=== PATIENT | female | born 1955 | race Caucasian/White ===

== ENCOUNTER 2023-09-28 14:23 | Emergency (ER) | payer BC, MEDICARE ==
[~2023-09-28] VITALS: Ht 161.3 cm; Wt 82.8 kg
[2023-09-28 14:24] VITALS: BP 166/96; PULSE 73; RESP 16; TEMP 98; O2SAT 99
== END 2023-09-28 14:38 | disposition home or self-care (01) ==
LOC: ER 14:24
DX: S00.83XA Contusion of other part of head, initial encounter (principal); W20.8XXA Other cause of strike by thrown, projected or falling object, initial encounter; Y93.89 Activity, other specified; Y92.89 Other specified places as the place of occurrence of the external cause; Y99.8 Other external cause status
CPT/HCPCS: 99281